=== PATIENT | male | born 1980 | race Caucasian/White ===

== ENCOUNTER 2021-03-05 14:36 | Outpatient (CLI) | payer OTHER ==
--- NOTE | 2021-03-05 16:15 | SLEEP CARE CONSULTATION ---
Information from patient questionnaire entered by Echo Malik. I have reviewed and concur with the information entered by Echo Malik. This document represents the service I personally performed and the decisions made by me, Urbano Hummel MD, [facility]. History of Present Illness Service Date and Time: 03/05/2021 1436 Reason for Visit: New patient Chief Complaint: reports: Unrefreshed sleep, Snoring, Observed pauses in breathing, Fatigue Date of Onset: 10 years plus Usual bedtime: 02/1030 Time it takes to fall asleep: 15 min - 2 hrs Snores at night: Yes Observed to quit breathing while asleep: Yes Sleeps alone due to snoring: No Number of times waking at night: 2-3 times Reasons for waking at night: reports: Snoring, Gasping for air, Pain, Other (Unknown reason) Toss, Turn, or Twitch while sleeping: Yes Recalls having dreams: No Usually gets out of bed at: 530/6 AM Feels refreshed in the morning: No Morning headache: No Sleepy or fatigued during the day: Yes Ever fallen asleep while driving: No Takes day naps: No Dreams during day naps: No Prior sleep studies: No Additional HPI information: I had the pleasure of seeing Mr. Henriquez today regarding the possibility of him having a sleep disorder. As you know, he is a 40 year old gentleman who complains of loud snore, unrefreshed sleep, and persistent fatigue for the past 10 years. The patient tells me that he normally goes to bed around 10 10:30 pm, and it takes him approximately 1.5 2 hours to fall asleep. He has been told that he snores loudly and irregularly at night. He has also been observed to stop breathing in his sleep. His can still sleep in the same bed. He can recall waking up on the average of 2 - 3 times during the night. Most of the time he wakes up because of his own snoring, choking, and having to gasp for air. There is a lot of tossing and turning in his sleep. No somniloquy (sleep talking) or somnambulism (sleep walking). Generally, there is no recollection of dreams. In the morning he usually gets up out of the bed around 5:30 - 6 a.m. not feeling refreshed nor rested. He usually does not have a morning headache. During the day he complains of feeling sleepy and fatigued. His score on [place] Sleepiness Scale is 16 out of 24. He never has fallen asleep while driving nor has had any accident due to sleepiness. He usually does not take naps during the day. Upon falling asleep during the day he denies having vivid dreams. He reports having restless leg syndrome. He denies having impaired concentration during the day. 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 Patient is and lives in [place]. Have you smoked in the past 12 months: Yes Cigarettes per day (20/pack): 10 Years of smokin Quit date: 2017 Smoking Pack Years: 5.0 Alcohol use: Yes Alcohol amount and frequency: 2-3 beers a week Caffeine use: Yes Caffeine amount and frequency: 3 or 4 cups of coffee, pop, redbull Family History Family history of sleep disordered breathing: Yes Family Hx Sleep Apnea: Mother: Sleep apnea - Treated, Father: Sleep apnea - Treated Allergies and Home Medications Drug allergies reviewed: Yes Home medication list reviewed: Yes Review of Systems Weight gain over past 5 years: 25 Weight loss over past 5 years: 40 Cardiovascular: denies: high blood pressure, palpitations, chest pain, irregular heart rate or pulse, leg or foot swelling, have to sleep sitting up, other Respiratory: denies: shortness of breath, wheeze, sputum production, chronic cough, other Gastrointestinal: denies: heartburn, difficulty swallowing, nausea, vomitting, diarrhea, abdominal pain, other Urinary: denies: incontinence, frequency, urgency, impotence, other Neurological: denies: headaches, seizure, head trauma, disorientation, speech dysfunction, gait or balance problems, fainting or unconsciousness, other Psychiatric: reports: anxiety Ear/Nose/Throat: reports: injury to nose, tonsillectomy, wisdom teeth removed Musculoskeletal: reports: joint pain (stiffness), neck pain, back pain Physical Exam Vital signs obtained and entered by: To minimize the risk of COVID-19 exposure, detailed exam was not performed. Cuff size: regular Height: 6 ft Weight: 256 lb Body Mass Index: 34.7 BMI Classification: Obese Impression and Plan IMPRESSION: 1. Obstructive Sleep Apnea-Hypopnea Syndrome, probably severe, as suggested by history of loud and irregular snoring, observed cessation of breath while asleep, frequent awakenings during the night, unrefreshed sleep, and daytime hypersomnolence. Narrow oropharynx and obesity are common predisposing factors for obstructive sleep apnea-hypopnea syndrome. I recommend proceeding to polysomnography to confirm the diagnosis and to assess severity. I informed the patient of what the sleep studies involve and after some discussion, he would like to first have a home sleep apnea test (HSAT). Plan: 1. Schedule a home sleep apnea test (HSAT) 2. Avoid long distance driving or when feeling sleepy. 3. Avoid alcohol, sedative and muscle relaxant around bedtime. 4. Attempt to lose weight. 5. Return for follow up after the test. Counseling Topics: Weight control Follow up with Sleep Care in: 1-2 months Visit Type: In Office Time Spent with Patient (minutes): 15 Provider Statement: I spent 100% of the Face to Face Visit with the patient with greater than 50% spent counseling the patient and coordination of care.
== END 2021-03-05 14:37 | disposition home or self-care (01) ==
LOC: SC 14:36
PROVIDERS: ATTEND Internal Medicine Pulmonary Disease
DX: R06.83 Snoring (principal); R06.81 Apnea, not elsewhere classified; G47.8 Other sleep disorders; G47.10 Hypersomnia, unspecified; Z87.891 Personal history of nicotine dependence; E66.9 Obesity, unspecified; Z68.34 Body mass index [BMI] 34.0-34.9, adult
CPT/HCPCS: 99202; 99212

== ENCOUNTER 2021-03-26 14:47 | Outpatient (CLI) | payer OTHER | END 2021-03-26 14:48 | disposition home or self-care (01) | LOC: SC 14:47 | PROVIDERS: ATTEND Nurse Practitioner Family | DX: G47.33 Obstructive sleep apnea (adult) (pediatric) (principal); R09.02 Hypoxemia; E66.9 Obesity, unspecified; Z68.34 Body mass index [BMI] 34.0-34.9, adult | CPT/HCPCS: 95806 ==

== ENCOUNTER 2021-03-30 09:11 | Outpatient (CLI) | payer OTHER ==
--- NOTE | 2021-03-30 09:43 | SLEEP CARE CONSULTATION ---
Information from patient questionnaire entered by Echo Malik. I have reviewed and concur with the information entered by Echo Malik. This document represents the service I personally performed and the decisions made by me, Meghann Desai ARNP. History of Present Illness Service Date and Time: 03/30/2021 09 Initial [place] Sleepiness Scale score: 16 (in 2020) Current [place] Sleepiness Scale score: 14 Additional HPI information: FRANK RAY returns for follow up and results of the recently performed home sleep study. I explained the pathophysiology behind obstructive sleep apnea. We then spent quite a bit of time discussing different treatment options. For mild obstructive sleep apnea, surgery and oral appliance are alternatives to nasal CPAP therapy but in moderate or severe cases, nasal CPAP is the most effective a nd reliable treatment. Because apnea is primarily in supine position, then positional management therapy could be effective. Methods discussed such as positioning with pillows to prevent supine sleep. I reviewed the impact of weight changes on sleep apnea and strongly recommended losing weight. After some discussion, the patient opted to go with the nasal CPAP therapy. Nasal autoCPAP set at 4-15 cmH20 will be ordered with rationale explained. A manual titration study will be ordered if unable to find optimal pressure with office adjustments. I explained how CPAP machine works with sample devices [email or web address] Dreamstation and [employer] [email or web address] and what to expect when using the machine. Using CPAP every night in order to get used to it was emphasized. Patient advised to put CPAP mask on before getting into bed so as not to fall asleep without CPAP. To assist acclimation to CPAP use, it could also be used for a short time during day while reading or watching TV. The patient was instructed to call the CPAP supplier to discuss any mechanical problem that may occur. If the mask given is uncomfortable or is difficult to keep on through the night even with adjustment, contact the CPAP supplier as many will replace with another mask style if notified before 30 days. If snoring or perceives is not getting enough air or too much air from the machine, notify this office. [facility] patient education PAP tips reviewed and given to patient. Patient counseled not drink alcohol less than 4 hours before bedtime as it can increase snoring and apnea. Patient was cautioned about risks of drowsy driving until sleepiness symptoms resolve. Sleep Study - Results Type of Sleep Study: Home sleep study Prior sleep studies: No Polysomnography/Home Sleep Study results: Physician Impression: The quality of the study is good. The length of the study is adequate (> 240 minutes). Please also see the tabulated and graphic data. 1. Obstructive Sleep Apnea-Hypopnea (ICD-10 G47.33), severe, with an AHI of 43.6/hr and silvia SaO2 of 77%. During the study, the patient had 324 apneas (324 obstructive, 0 central, 0 mixed) and 80 hypopneas. The longest episode lasted 58.5 seconds. The respiratory events occurred more frequently during supine sleep (supine AHI was 65.6 and non-supine, 26.74). 2. Hypoxemia (ICD-10 R09.02), moderate, with the lowest oxygen saturation of 77 % and 44.4 minutes with SaO2 under 90%. Baseline oxygen saturation was normal (Average oxygen saturation was 93%). Allergies and Home Medications Home medication list reviewed: Yes (no changes) Review of Systems Review of systems same as previous: Yes (no changes) Physical Exam Vital signs obtained and entered by: NELLY Cardoso Blood Pressure: 114/80 Cuff size: wrist Heart Rate: 62 O2 Saturation: 98 Height: 6 ft Weight: 256 lb Body Mass Index: 34.7 BMI Classification: Obese Impression and Plan 1. Obstructive Sleep Apnea-Hypopnea Syndrome, severe, with lowest oxygen saturation of 77%. Obviously this is the cause of the patients symptoms of unrefreshed sleep, and excessive daytime sleepiness. Positive pressure therapy could benefit his overall health and reduce risks for cardiovascular and cerebrovascular adverse events. As mentioned above, the patient will be started on nasal autoCPAP therapy with pressure set at 4-15 cmH2O. Compliance guidelines also reviewed. A copy of compliance guidelines will be given for reference at check out. Because the apnea is more severe supine, I instructed to avoid sleeping supine using pillow positioning until able to start CPAP use. 2. Hypoxemia, moderate, with the lowest oxygen saturation of 77 % and 44.4 minutes with SaO2 under 90%. His baseline oxygen saturation was normal with an average oxygen saturation of 93%. * Nasal auto CPAP therapy, pressure at 4-15 cm H2O. * Attempt to lose weight. * Avoid alcohol consumption near bedtime. * Avoid supine sleep until using CPAP. * The patient is again cautioned about driving until sleepiness completely resolves. * Return one month after CPAP obtained. I will assess response to therapy and compliance at that time. Counseling Topics: Weight loss health impact Visit Type: In Office Time Spent with Patient (minutes): 20 Provider Statement: I spent 100% of the Face to Face Visit with the patient with greater than 50% spent counseling the patient and coordination of care.
[2021-03-30 09:44] VITALS: BP 114/80
== END 2021-03-30 09:12 | disposition home or self-care (01) ==
LOC: SC 09:11
PROVIDERS: ATTEND Nurse Practitioner Family
DX: G47.33 Obstructive sleep apnea (adult) (pediatric) (principal); E66.9 Obesity, unspecified; Z68.34 Body mass index [BMI] 34.0-34.9, adult
CPT/HCPCS: 99212; 99213

== ENCOUNTER 2021-11-14 15:07 | Outpatient (CLI) | payer OTHER ==
--- NOTE | 2021-11-14 15:53 | SLEEP CARE CONSULTATION ---
Information from patient questionnaire entered by Mary Gilliland MA. I have reviewed and concur with the information entered by Mary Gilliland MA. This document represents the service I personally performed and the decisions made by , Meghann Desai ARNP. History of Present Illness Service Date and Time: 11/14/2021 1507 Previous diagnosis: Severe, Obstructive Sleep Apnea-Hypopnea Syndrome AHI: 43.6 (in 03/2021) Reason for follow up: first compliance (MARY DÍAZ 08/20/2021, ) Equipment type: CPAP Equipment obtained from: [employer] (got initial supplies) Mask style: Nasal Mask brand: Resmed (Airfit [id number]) Backup mask available: No (will keep old mask when replaced) Last cushion change: 1 month Prior sleep studies: No Type of Sleep Study: Home sleep study HPI additional information: FRANK RAY was diagnosed to have severe, AHI 43.6, obstructive sleep apnea- hypopnea syndrome and returned today for CPAP therapy first compliance follow- up. Sleep Study - Results Type of Sleep Study: Home sleep study Prior sleep studies: No CPAP Compliance Data - Data Reviewed with Patient Average duration of nightly device use: 5 HOURS 43 MINUTES Compliance rate %: 81 (08-26-2021 to 11-13-2021; 80 days; 74/80 days used) Current pressure setting (cmH2O): 4-15 (median 8.0, avg 11.7, max 12.9) Average residual AHI: 7.5 Central apnea: 3.7 Obstructive apnea: 2.7 Hypopnea: 0.8 Subjective Missed days of use due to: reports: other (forgot to put on) Patient concerns: denies: aerophagia, mask discomfort, air blowing in eyes, mask leak noise, condensation in mask/hose, nasal congestion, dry mouth, nose, throat, epistaxis, other Observed to snore while using device: No Current pressure setting perceived as: comfortable (may be too low at first) On therapy, patient: reports: sleeping better, awakening more refreshed, being more awake and alert during the day, more rested overall. denies: drowsiness while driving Initial [place] Sleepiness Scale score: 16 (in 2020) Current [place] Sleepiness Scale score: 9 Allergies and Home Medications Home medication list reviewed: Yes (no changes) Allergy and home medication list: Allergies erythromycin base [Erythromycin Base] Adverse Reaction (Intermediate, Verified 04/09/16 17:39) Hives ibuprofen [From Motrin] Adverse Reaction (Intermediate, Verified 04/09/16 17:39) Hives meloxicam [From Mobic] Adverse Reaction (Intermediate, Verified 04/09/16 17:39) Hives naproxen Adverse Reaction (Intermediate, Verified 04/09/16 17:39) Hives zolpidem tartrate * [From Ambien] Adverse Reaction (Intermediate, Verified 04/09/16 17:39) Respiratory swollen throat Review of Systems Review of systems same as previous: Yes (no changes) Physical Exam Vital signs obtained and entered by: Lilly GILLILAND CMA AANELLY Blood Pressure: 121/80 (resp 18) Cuff size: wrist Heart Rate: 72 O2 Saturation: 98 Height: 6 ft Weight: 287 lb Body Mass Index: 38.9 BMI Classification: Obese Impression and Plan 1. Obstructive Sleep Apnea-Hypopnea Syndrome, severe, with good treatment compliance and good apnea control. On CPAP therapy, the patient has better sleep quality and is more rested overall. Patient is very happy with results of CPAP therapy. Patient denies problems with oral dryness, nasal congestion, epistaxis, skin irritation or aerophagia. He states he feels that the pressure might be a little low at the onset of night when he puts the mask on and would like to have it a little higher. I will adjust his ramp starting pressure to 6 cm H2O to help reduce this air hunger. The patients pressure will be changed to autoCPAP 11-14 cmH20 for elevation of residual AHI. Patient advised to contact me if pressure change is uncomfortable so that it can be adjusted. Goals for apnea control discussed. Patient's apnea severity and rationale for treatment to reduce apnea, improve sleep quality and reduce cardiovascular and cerebrovascular events was reviewed. 2. Obesity, unspecified. Currently patients BMI is 38.9. Obesity increases the risk of apnea, CPAP pressure requirements and overall health risks especially cardiovascular and diabetes. Thus patient is advised to lose weight. Weight loss can be done with reducing portion size, reducing refined foods and balancing content with vegetables, fruit and whole grain foods. In addition, patient encouraged to get regular exercise. * Change auto CPAP pressure to 11-14 cmH2O * Notify me if snoring with mask or feeling that the pressure is too much or too little * Attempt to lose weight * Call this office if any problems using CPAP * Return for follow up in 1-2 months, or sooner if concerns arise Counseling Topics: Spare mask, Weight loss health impact Visit Type: In Office Time Spent with Patient (minutes): 21 Provider Statement: I spent 100% of the Face to Face Visit with the patient with greater than 50% spent counseling the patient and coordination of care.
[2021-11-14 16:19] VITALS: BP 121/80
== END 2021-11-14 15:08 | disposition home or self-care (01) ==
LOC: SC 15:07
PROVIDERS: ATTEND Nurse Practitioner Family
DX: G47.33 Obstructive sleep apnea (adult) (pediatric) (principal); E66.9 Obesity, unspecified; Z68.38 Body mass index [BMI] 38.0-38.9, adult
CPT/HCPCS: 99212; 99213

== ENCOUNTER 2022-01-15 15:01 | Outpatient (CLI) | payer OTHER ==
[2022-01-15 15:43] VITALS: BP 141/96
--- NOTE | 2022-01-15 15:43 | SLEEP CARE CONSULTATION ---
Information from patient questionnaire entered by Mary Cardenas MA. I have reviewed and concur with the information entered by Mary Cardenas MA. This document represents the service I personally performed and the decisions made by , Meghann Desai ARNP. History of Present Illness Service Date and Time: 01/15/2022 1501 Previous diagnosis: Severe, Obstructive Sleep Apnea-Hypopnea Syndrome AHI: 43.6 Reason for follow up: other (2 month f/u) Equipment type: CPAP Equipment obtained from: [employer] ([employer]) Mask style: Nasal Mask brand: Resmed (Airfit [id number]) Backup mask available: Yes (old mask) Last cushion change: not yet Prior sleep studies: No Type of Sleep Study: Home sleep study HPI additional information: FRANK RAY was diagnosed to have severe, AHI 43.6, obstructive sleep apnea-hypopnea syndrome and returned today for CPAP therapy two month follow-up. Sleep Study - Results Type of Sleep Study: Home sleep study Prior sleep studies: No CPAP Compliance Data - Data Reviewed with Patient Average duration of nightly device use: 6 HOURS 0 MINUTES Compliance rate %: 70 (51/60 days used) Current pressure setting (cmH2O): 11-14 (median 11.2, avg 12.5, max 13.0) Average residual AHI: 9.4 Central apnea: 7.7 Obstructive apnea: 0.9 Hypopnea: .5 Average large leak: 1.6 Subjective Missed days of use due to: reports: travel, other (stayed up all night) Patient concerns: reports: other (still seeing pretty high events on good night sleep). denies: aerophagia, mask discomfort, air blowing in eyes, mask leak noise, condensation in mask/hose, nasal congestion, dry mouth, nose, throat, epistaxis Observed to snore while using device: No Current pressure setting perceived as: comfortable On therapy, patient: reports: sleeping better, awakening more refreshed, being more awake and alert during the day, more rested overall. denies: drowsiness while driving Initial [place] Sleepiness Scale score: 16 (in 2020) Current [place] Sleepiness Scale score: 6 (01/15/2022) Allergies and Home Medications Known drug allergies: Yes Drug allergies reviewed: Yes Home medication list reviewed: Yes (no changes) Allergy and home medication list: Allergies erythromycin base [Erythromycin Base] Adverse Reaction (Intermediate, Verified 04/09/16 17:39) Hives ibuprofen [From Motrin] Adverse Reaction (Intermediate, Verified 04/09/16 17:39) Hives meloxicam [From Mobic] Adverse Reaction (Intermediate, Verified 04/09/16 17:39) Hives naproxen Adverse Reaction (Intermediate, Verified 04/09/16 17:39) Hives zolpidem tartrate * [From Ambien] Adverse Reaction (Intermediate, Verified 04/09/16 17:39) Respiratory swollen throat verified by nic cardenas cma amaa 01/15/2022 1523 Review of Systems Review of systems same as previous: Yes (no changes) Physical Exam Vital signs obtained and entered by: NELLY Cardenas Blood Pressure: 141/96 (r 20/ p 83, right) Cuff size: wrist Heart Rate: 78 O2 Saturation: 97 (paper mask) Height: 6 ft Weight: 262 lb (uniform and boots) Weight change since last visit: 25 lb loss Body Mass Index: 35.5 BMI Classification: Obese Impression and Plan 1. Obstructive Sleep Apnea-Hypopnea Syndrome, severe, with good treatment compliance and fair apnea control with mildly elevated residual AHI. On CPAP therapy, the patient has better sleep quality and is more rested overall. Patient's residual AHI is elevated at 9.4. He has centrals at 7.7 and obstructions at 0.9. I will make an adjustment to see if that will improve the AHI. The patients pressure will be changed to autoCPAP 8-11 cmH20 for elevation of residual AHI. Patient advised to contact me if pressure change is uncomfor table so that it can be adjusted. Goals for apnea control discussed. Patient's apnea severity and rationale for treatment to reduce apnea, improve sleep quality and reduce cardiovascular and cerebrovascular events was reviewed. 2. Obesity, unspecified. Patient has lost weight. Currently patients BMI is 35.5. Obesity increases the risk of apnea, CPAP pressure requirements and overall health risks especially cardiovascular and diabetes. Thus patient is advised to continue to try to lose weight. * Change auto CPAP pressure to 8-11 cmH2O * Notify me if snoring with mask or feeling that the pressure is too much or too little * Continue to try to lose weight * Call this office if any problems using CPAP * Return for follow up in 3 months, or sooner if concerns arise Counseling Topics: Spare mask, Weight loss health impact Visit Type: In Office Time Spent with Patient (minutes): 20 Provider Statement: I spent 100% of the Face to Face Visit with the patient with greater than 50% spent counseling the patient and coordination of care.
== END 2022-01-15 15:02 | disposition home or self-care (01) ==
LOC: SC 15:01
PROVIDERS: ATTEND Nurse Practitioner Family
DX: G47.33 Obstructive sleep apnea (adult) (pediatric) (principal); E66.9 Obesity, unspecified; Z68.35 Body mass index [BMI] 35.0-35.9, adult
CPT/HCPCS: 99212; 99213

== ENCOUNTER 2022-04-03 14:57 | Outpatient (CLI) | payer OTHER ==
--- NOTE | 2022-04-03 15:40 | SLEEP CARE CONSULTATION ---
Information from patient questionnaire entered by Adelso Padilla. I have reviewed and concur with the information entered by Adelso Padilla. This document represents the service I personally performed and the decisions made by me, Meghann Desai ARNP. History of Present Illness Service Date and Time: 04/03/2022 1457 Previous diagnosis: Severe, Obstructive Sleep Apnea-Hypopnea Syndrome AHI: 43.6 (in 03/2021) Reason for follow up: three month (F/U PRESSURE CHANGE ) Equipment type: CPAP (RESMED) Equipment obtained from: [employer] (getting supplies) Mask style: Nasal Mask brand: Resmed (Airfit [id number]) Backup mask available: Yes (old mask) Last cushion change: 3 weeks Prior sleep studies: No Type of Sleep Study: Home sleep study HPI additional information: FRANK RAY was diagnosed to have severe, AHI 43.6, obstructive sleep apnea- hypopnea syndrome and returned today for CPAP therapy three month follow-up. Sleep Study - Results Type of Sleep Study: Home sleep study Prior sleep studies: No CPAP Compliance Data - Data Reviewed with Patient Average duration of nightly device use: 5 HRS 41 MIN Compliance rate %: 70 (01/01/2022-03/31/2022; 78/90 days used) Current pressure setting (cmH2O): 8-11 Average residual AHI: 5.6 Central apnea: 3.4 Obstructive apnea: 1.1 Hypopnea: 0.9 Average large leak: 0.5 lpm Subjective Missed days of use due to: reports: travel (detachments), other (sometimes will fall asleep without mask on, but will put on as soon as he can) Patient concerns: denies: aerophagia, mask discomfort, air blowing in eyes, mask leak noise, condensation in mask/hose, nasal congestion, dry mouth, nose, throat, epistaxis Observed to snore while using device: No Current pressure setting perceived as: comfortable On therapy, patient: reports: sleeping better, awakening more refreshed, being more awake and alert during the day, more rested overall. denies: drowsiness while driving Initial [place] Sleepiness Scale score: 16 (in 2020) Current [place] Sleepiness Scale score: 6 (04/03/2022) Allergies and Home Medications Drug allergies reviewed: Yes (as listed in EMR) Home medication list reviewed: Yes (no changes) Review of Systems Review of systems same as previous: Yes (no changes) Physical Exam Vital signs obtained and entered by: ADELSO Bingham MA Blood Pressure: 128/76 (LEFT ARM) Cuff size: regular Heart Rate: 82 O2 Saturation: 97 Height: 6 ft Weight: 269 lb 6.4 oz Body Mass Index: 36.5 BMI Classification: Obese Impression and Plan 1. Obstructive Sleep Apnea-Hypopnea Syndrome, severe, with good treatment compliance and fair apnea control with minimal elevation of residual AHI. On CPAP therapy, the patient has better sleep quality and is more rested overall. Patient is really happy with new pressure settings, he feels is is very comfortable. Patient CPAP therapy is slightly ineffective but has significantly reduced their sleep apnea. We will continue pressure setting at 8-11 cm H2O at this time. We will reevaluate at his next appointment to see if he needs further adjustment. Patient denies problems with oral dryness, nasal congestion, epistaxis, skin irritation or aerophagia. Patient's apnea severity and rationale for treatment to reduce apnea, improve sleep quality and reduce cardiovascular and cerebrovascular events was reviewed. 2. Obesity, unspecified. Currently patients BMI is 36.8. Obesity increases the risk of apnea, CPAP pressure requirements and overall health risks especially cardiovascular and diabetes. Thus patient is advised to lose weight. * Continue auto CPAP pressure at 8-11 cmH2O * Notify me if snoring with mask or feeling that the pressure is too much or too little * Attempt to lose weight * Call this office if any problems using CPAP * Return for follow up in 6 months, or sooner if concerns arise Counseling Topics: Spare mask, Weight loss health impact Visit Type: In Office Time Spent with Patient (minutes): 11 Provider Statement: I spent 100% of the Face to Face Visit with the patient with greater than 50% spent counseling the patient and coordination of care.
[2022-04-03 15:41] VITALS: BP 128/76
== END 2022-04-03 14:58 | disposition home or self-care (01) ==
LOC: SC 14:57
PROVIDERS: ATTEND Nurse Practitioner Family
DX: G47.33 Obstructive sleep apnea (adult) (pediatric) (principal); E66.9 Obesity, unspecified; Z68.36 Body mass index [BMI] 36.0-36.9, adult
CPT/HCPCS: 99212

== ENCOUNTER 2023-06-04 14:13 | Outpatient (CLI) | payer OTHER ==
--- NOTE | 2023-06-04 14:57 | Sleep Patient Instructions ---
Sleep Center Visit Summary - Patient Visit Information Reason for Visit: Annual Visit - Patient Instructions Additional Instructions: You will continue with CPAP therapy with pressure changed to 10-12 cmH2O. A supply prescription will be updated with your DME. We encourage you to continue to try to lose weight. Please follow up with the sleep care office in 1 year. - Clinic Information Contact: [facility] [address] [place] [address] [email or web address] T: [phone]
--- NOTE | 2023-06-04 15:00 | SLEEP CARE CONSULTATION ---
Information from patient questionnaire entered by Adelso Padilla. I have reviewed and concur with the information entered by Adelso Padilla. This document represents the service I personally performed and the decisions made by , Meghann Desai ARNP. History of Present Illness Service Date and Time: 06/04/2023 1413 Previous diagnosis: Severe, Obstructive Sleep Apnea-Hypopnea Syndrome AHI: 43.6 (in 03/2021) Reason for follow up: annual (LAST SEEN 03/2022) Equipment type: CPAP (RESMED 11, s/u 08/2021) Equipment obtained from: [employer] (getting supplies) Mask style: Nasal Mask brand: Resmed (AirFit [id number]) Backup mask available: Yes Last cushion change: couple weeks Prior sleep studies: No Type of Sleep Study: Home sleep study HPI additional information: FRANK RAY was diagnosed to have severe, AHI 43.6, obstructive sleep apnea- hypopnea syndrome and returned today for CPAP therapy annual follow-up. Sleep Study - Results Type of Sleep Study: Home sleep study Prior sleep studies: No CPAP Compliance Data - Data Reviewed with Patient Average duration of nightly device use: 5 HRS 40 MINS Compliance rate %: 68 (06/03/22-06/02/23; 334/365 days used; 70% in last 30 days) Current pressure setting (cmH2O): 8-11 (avg 10.7, max 10.9) Average residual AHI: 1.5 Central apnea: 0.4 Obstructive apnea: 0.4 Hypopnea: 0.6 Average large leak: 1.4 L/min Subjective Missed days of use due to: reports: travel ( traveling), other (machine malfunctioned and was replaced) Patient concerns: denies: aerophagia, mask discomfort, air blowing in eyes, mask leak noise, condensation in mask/hose, nasal congestion, dry mouth, nose, throat, epistaxis Observed to snore while using device: No Current pressure setting perceived as: too low On therapy, patient: reports: sleeping better, awakening more refreshed, being more awake and alert during the day, more rested overall. denies: drowsiness while driving Initial [place] Sleepiness Scale score: 16 (in 2020) Current [place] Sleepiness Scale score: 8 (06/04/23) Allergies and Home Medications Known drug allergies: Yes (as listed) Drug allergies reviewed: Yes Home medication list reviewed: Yes (Diazepam/Methocarbamol) Allergy and home medication list: Allergies erythromycin base [Erythromycin Base] Adverse Reaction (Intermediate, Verified 06/03/23 13:58) Hives ibuprofen [From Motrin] Adverse Reaction (Intermediate, Verified 06/03/23 13:58) Hives meloxicam [From Mobic] Adverse Reaction (Intermediate, Verified 06/03/23 13:58) Hives naproxen Adverse Reaction (Intermediate, Verified 06/03/23 13:58) Hives zolpidem tartrate * [From Ambien] Adverse Reaction (Intermediate, Verified 06/03/23 13:58) Respiratory swollen throat Review of Systems Review of systems same as previous: Yes (TRIGGER POINT INJECTION NECK/SHOULDER) Physical Exam Vital signs obtained and entered by: ADELSO Bingham MA Blood Pressure: 124/77 (LEFT ARM) Cuff size: regular Heart Rate: 76 O2 Saturation: 96 Height: 6 ft Weight: 273 lb 12.8 oz Body Mass Index: 37.1 BMI Classification: Obese Impression and Plan 1. Obstructive Sleep Apnea-Hypopnea Syndrome, severe, with good treatment compliance and good apnea control. On CPAP therapy, the patient has better sleep quality and is more rested overall. He states his machine was malfunctioning at one point in the last year and they ended up replacing it. He has had no other issues with the machine. Patient has significant improvement of their sleep apnea and is satisfied with current CPAP therapy. He does feel like the pressure is a little low. The patients pressure will be changed to autoCPAP 10-12 cmH20. Patient advised to contact me if pressure change is uncomfortable so that it can be adjusted. Goals for apnea control discussed. Patient's apnea severity and rationale for treatment to reduce apnea, improve sleep quality and reduce cardiovascular and cerebrovascular events was reviewed. 2. Obesity, unspecified. Currently patients BMI is 37.1. Obesity increases the risk of apnea, CPAP pressure requirements and overall health risks especially cardiovascular and diabetes. Thus patient is advised to lose weight. * Change auto CPAP pressure at 10-12 cmH2O * Update supply prescription * Notify me if snoring with mask or feeling that the pressure is too much or too little * Attempt to lose weight * Call this office if any problems using CPAP * Return for follow up in 12 months, or sooner if concerns arise Adjust device pressure to (cmH2O): 10-12 Counseling Topics: Spare mask, Weight loss health impact Prescriptions: Device supplies Follow up with Sleep Care in: 1 year Visit Type: In Office Time Spent with Patient (minutes): 20 Provider Statement: I spent 100% of the Face to Face Visit with the patient with greater than 50% spent counseling the patient and coordination of care.
[2023-06-04 15:02] VITALS: BP 124/77; O2SAT 96
== END 2023-06-04 14:14 | disposition home or self-care (01) ==
LOC: SC 14:13
PROVIDERS: ATTEND Nurse Practitioner Family
DX: G47.33 Obstructive sleep apnea (adult) (pediatric) (principal); E66.9 Obesity, unspecified; Z68.37 Body mass index [BMI] 37.0-37.9, adult
CPT/HCPCS: 99212; 99213

== ENCOUNTER 2023-10-20 06:56 | Outpatient (CLI) | payer OTHER ==
--- NOTE | 2023-10-20 12:54 | MRI Report ---
PROCEDURE: Cervical Spine WO INDICATIONS: CERVICAL RADICULOPATHY TECHNIQUE: Noncontrast sagittal T1 spin echo and T2 fast spin echo, sagittal STIR, foraminal oblique sagittal T2 fast spin echo, and axial gradient echo or T2 fast spin echo through the cervical spine. COMPARISON: 03/03/2022. FINDINGS: Image quality: Excellent. Alignment and Curvature: There is normal bony alignment. Bone Marrow: Marrow demonstrates normal overall signal. Spinal Cord: Visualized spinal cord has normal size and signal. No cerebellar tonsillar herniation. Paraspinous Soft Tissues: No paravertebral masses. Prevertebral soft tissues are normal in thicknes s. C2-C3: Right facet hypertrophy. No canal stenosis or foraminal stenosis. C3-C4: No canal stenosis or foraminal stenosis. Bilateral facet hypertrophy, right greater than lef t. C4-C5: No canal stenosis or significant foraminal stenosis. Mild bilateral facet hypertrophy. C5-C6: Mild disc bulge. No canal stenosis. Mild left foraminal stenosis. C6-C7: Mild disc bulge. No canal stenosis. Bilateral facet hypertrophy. Bilateral uncovertebral join t hypertrophy. Progressive right foraminal narrowing, moderate to severe, with a mild degree of right foraminal C7 nerve root impingement. Reference right sagittal oblique image 7 of series 1017. Modera te left foraminal narrowing C7-T1: Bilateral facet hypertrophy. No canal stenosis or significant foraminal stenosis. IMPRESSION: 1. There is multilevel facet arthropathy. 2. As before, no canal stenosis. 3. Progressive right foraminal narrowing at C6-C7, moderate to severe, with a mild degree of right fo raminal C7 nerve root impingement. Reviewed by: Ha Lord MD on 10/20/2023 12:52 PM PDT Approved by: Ha Lord MD on 10/20/2023 12:52 PM PDT Station ID: [id number]
== END 2023-10-20 06:57 | disposition home or self-care (01) ==
LOC: DI 06:56
DX: M47.22 Other spondylosis with radiculopathy, cervical region (principal); M47.23 Other spondylosis with radiculopathy, cervicothoracic region